=== PATIENT | female | born 1990 ===

== ENCOUNTER 2022-06-13 13:43 | Emergency (ER) | payer OTHER, MEDICAID, SELFPAY ==
[2022-06-13 13:32] VITALS: BP 131/76; PULSE 67; RESP 15; TEMP 36.1; O2SAT 96; BMI 27.1
--- NOTE | 2022-06-13 14:02 | DI.CT.S_ITS ---
PROCEDURE: CT HEAD/BRAIN WO CON INDICATIONS: altered TECHNIQUE: Noncontrast 4.5 mm thick angled axial sections acquired from the foramen magnum to the vertex, with coronal and sagittal reformats. For radiation dose reduction, the following was used: automated exposure control, adjustment of mA and/or kV according to patient size. COMPARISON: None FINDINGS: Image quality: Excellent. CSF spaces: Basal cisterns are patent. No extra-axial fluid collections. Ventricles are normal in size and shape. Brain: No midline shift. There is a focal left temporal hemorrhage, with a parenchymal hematoma measuring 2.4 x 1.5 x 1.9 cm . Hilliard-white matter interface is normal. Skull and face: Calvarium and visualized facial bones are intact, without suspicious lesions. Sinuses: Visualized sinuses and mastoids are clear. IMPRESSION: Focal left temporal parenchymal hematoma measuring 2.4 x 1.5 x 1.9 cm Comment: Findings were discussed with Dr. Nash on 06/13/2022 at 1456 hours It is noted that the patient also has a CT angiogram of the head. Please refer to a separate report. Dictated by: Augusto Cheung M.D. on 06/13/2022 at 14:49 Approved by: Augusto Cheung M.D. on 06/13/2022 at 14:53
[2022-06-13 14:23] LABS: Add Manual Diff / Slide Review NO; Basophils Absolute Auto 0 /uL (0-100); Basophils Percent Auto 0.4 % (0-2); Eosinophils Absolute Auto 100 /uL (0-450); Eosinophils Percent Auto 1.3 % (2-4); Hematocrit 38.8 % (36-46); Hemoglobin 13.1 g/dL (12.0-16.0); Lymphocytes Absolute Auto 1200 /uL (1100-4500); Lymphocytes Percent Auto 19.3 % (25-40); Mean Corpuscular HGB Conc 33.7 % (30-36); Mean Corpuscular Hemoglobin 28.3 PG (26-34); Mean Corpuscular Volume 84.2 fL (80-100); Monocytes Absolute Auto 500 /uL (0-900); Neutrophils Absolute Auto 4300 /uL (1500-7000); Platelet Count 199 X10^3/uL (150-400); Red Blood Cell Count 4.61 X10^6/uL (4.0-5.2); White Blood Cell Count 6.1 X10^3/uL (4.5-11.0)
[2022-06-13 14:32] LABS: Lactate (Lactic Acid) 0.7 mmol/L (0.7-2.1)
--- NOTE | 2022-06-13 14:32 | DI.CT.S_ITS ---
PROCEDURE: CT ANGIO HEAD INDICATIONS: 31-year-old female with left temporal hemorrhage TECHNIQUE: Precontrast 4.5 mm thick angled axial sections acquired from the foramen magnum to the vertex. After the administration of intravenous contrast, 1 mm thick sections acquired through the Kimberly of [place]. Postcontrast 4.5 mm thick sections then re-acquired from the foramen magnum to the vertex. 10 mm thick ivhzqaj-mubrggblz-[id number] (MIP) reformats were acquired of the central intracranial vasculature. For radiation dose reduction, the following was used: automated exposure control, adjustment of mA and/or kV according to patient size. COMPARISON: [facility], CT, CT HEAD/BRAIN WO CON, 06/13/2022, 14:28. FINDINGS: Image quality: Excellent. In the left anterior temporal lobe, there is a tangle of vessels measuring approximately 1.7 cm extending into the sylvian fissure with dilated arterial supply arising from branches of the middle cerebral artery. Dilated venous drainage is via the basal vein of Ector to the deep venous vasculature. No obvious aneurysm present. No evidence of large vessel occlusion. Both anterior cerebral vessels unremarkable. Right anterior circulation unremarkable. Posterior circulation: Visualized portions of the vertebral arteries demonstrate normal caliber, and join to form a normal appearing basilar artery. Flow within the posterior cerebral arteries is normal and symmetric. No aneurysms are seen. Otherwise, left temporal hematoma remains unchanged. No evidence of subarachnoid bleed. No mass effect or midline shift. IMPRESSION: Left temporal arterial venous malformation. Small nidus in the left temporal pole drains to the deep venous system Stable left temporal hematoma Approved by: Robbie Gutierrez M.D. on 06/13/2022 at 14:02
--- NOTE | 2022-06-13 14:32 | ED.NEUROSD ---
HPI - Neuro Symptoms/Deficit General Chief Complaint: Neuro Symptoms/Deficit Stated Complaint: Confusion Time Seen by Provider: 06/13/22 13:53 Source: EMS Mode of arrival: EMS History of Present Illness HPI Narrative: 31-year-old female nonsmoker with noncontributory medical history that is known presents by EMS for evaluation of confusion. She is a very poor historian and does not understand why she is here and denies any trauma or injury. It is reported that she walked to her neighbor's house who noted her to be acting abnormally and they called EMS. she is certainly slurring her words a bit but does admit to drinking upwards of 2 bottles of champagne per day. She denies any seizures or injuries. She takes no blood thinners. She denies any headache or blurred vision. Related Data Allergies Allergy/AdvReac Type Severity Reaction Status Date / Time No Known Drug Allergies Allergy Verified 06/13/22 14:00 Review of Systems Review of Systems Narrative: GENERAL: Denies chills, fatigue, malaise, fever, sweats. HEENT: Denies sinus pain, ear pain, sore throat, difficulty swallowing, dizziness. RESPIRATORY: Denies dyspnea, cough, wheezing, hemoptysis, sputum. CARDIOVASCULAR: Denies chest pain, palpitations, orthopnea, edema, GASTROINTESTINAL: Denies nausea, vomiting, abdominal pain, diarrhea, constipation, melena. : Denies dysuria, frequency, incontinence, hematuria, urinary retention. MUSCULOSKELETAL: denies weakness, joint pain, or bony pain SKIN: Denies rash, skin lesions, or other NEUROLOGIC: See HPI PSYCHIATRIC: No concerning psychosocial issues. 12 point review of systems is negative except for those stated above Patient History Social History Smoking Status: Unknown if ever smoked Smoking Status: Unknown if ever smoked Exam Narrative Exam Narrative: GENERAL: [31] year old patient appears stated age. Well-developed patient, in mild distress. GCS 14 (confused) HEAD: Atraumatic. Normocephalic. EYES: Pupils equal round and reactive. Extraocular motions intact. No scleral icterus. No injection or drainage. ENT: Nose without bleeding, purulent drainage. Throat without erythema, tonsillar hypertrophy or exudate. Airway patent. NECK: Trachea midline. Non tender CARDIOVASCULAR: Regular rate and rhythm without murmurs, gallops, or rubs. RESPIRATORY: Clear to auscultation. Breath sounds equal bilaterally. No wheezes, rales, or rhonchi. GASTROINTESTINAL: Abdomen soft, non-tender, nondistended. EXTREMITIES: No edema or joint tenderness. BACK: Nontender without deformity or crepitance. No flank tenderness. NEURO: AOx3. SKIN: No rash or erythema of visible areas Initial Vital Signs Initial Vital Signs: Vital Signs Temperature 97.0 F L 06/13/22 13:32 Pulse Rate 67 06/13/22 13:32 Respiratory Rate 15 06/13/22 13:32 Blood Pressure 131/76 06/13/22 13:32 Pulse Oximetry 96 06/13/22 13:32 Oxygen Delivery Method Room Air 06/13/22 13:32 Course Orders Ordered: ED Orders 06/13/22 14:01 Urine Drug Screen, Rapid Stat 06/13/22 14:02 CT head/brain wo con Stat 06/13/22 14:10 Acetaminophen Stat Complete Blood Count AUTO DIFF Stat Comprehensive Metabolic Panel Stat Ethanol (ETOH) Stat Lactate (Lactic Acid) Stat Lipase Stat Magnesium Stat Osmolality, Serum Stat Salicylate Stat 06/13/22 14:32 CT angio head Stat 06/13/22 15:14 COVID19 -Nasal RAPID Stat Nicardipine HCl 25 mg/ Sodium (Chloride) 250 mls @ 50 mls/hr IV TITRATE VEDA; Protocol Consultations Consultation #1: call to radiologist (Dr. Casas) to discuss CT findings noting Focal left temporal parenchymal hematoma measuring 2.4 x 1.9 cm Consultation #2: call to Dr. Pickard ([facility] [place] [facility]), requests BP held below 140. Will consult with Neurosurgery given likelihood of AVM. Consultation #3: Dr. Valdez ([place]urg [facility] [place] happy to accept, again requests blood pressure held to below 140, he does recommend the addition of Keppra 1 g if able to be initiated and 5 minutes or less, requests airlift not be delayed Vital Signs Vital signs: Vital Signs - 8 hr 06/13/22 13:32 06/13/22 14:43 06/13/22 14:43 Temperature 97.0 F L Pulse Rate 67 98 H Respiratory Rate 15 Blood Pressure 131/76 126/84 Pulse Oximetry 96 98 Oxygen Delivery Method Room Air 06/13/22 15:00 06/13/22 15:00 Temperature Pulse Rate 85 Respiratory Rate 26 H Blood Pressure 137/82 Pulse Oximetry 98 Oxygen Delivery Method MDM - Neuro Symptoms/Deficit Lab Data 06/13/22 14:10 06/13/22 14:10 Labs: Lab Results 06/13/22 06/13/22 06/13/22 Range/Units 14:10 14:10 14:10 WBC 6.1 (4.5-11.0) X10^3/uL RBC 4.61 (4.0-5.2) X10^6/uL Hgb 13.1 (12.0-16.0) g/dL Hct 38.8 (36-46) % MCV 84.2 (80-100) fL MCH 28.3 (26-34) PG MCHC 33.7 (30-36) % RDW 13.0 (11.6-14.8) % Plt Count 199 (150-400) X10^3/uL Neut % (Auto) 71.0 (50-75) % Lymph % (Auto) 19.3 L (25-40) % Zavala % (Auto) 8.0 (3-14) % Eos % (Auto) 1.3 L (2-4) % Baso % (Auto) 0.4 (0-2) % Neut # (Auto) 4300 (4652-6521) /uL Lymph # (Auto) 1200 (8140-3759) /uL Zavala # (Auto) 500 (0-900) /uL Eos # (Auto) 100 (0-450) /uL Baso # (Auto) 0 (0-100) /uL Sodium 136 L (137-145) mmol/L Potassium 3.7 (3.4-5.1) mmol/L Chloride 104 (98-107) mmol/L Carbon Dioxide 24 (22-32) mmol/L BUN 9 (7-17) mg/dL Creatinine 0.53 (0.52-1.04) mg/dL Estimated GFR > 60 (>60) mL/min BUN/Creatinine Ratio 17.0 (6-22) Glucose 122 H (70-100) mg/dL Lactate 0.7 (0.7-2.1) mmol/L Calcium 8.2 L (8.4-10.2) mg/dL Magnesium 2.0 (1.6-2.3) mg/dL Total Bilirubin 0.4 (0.2-1.3) mg/dL AST 22 (14-36) IU/L ALT 23 (<35) IU/L Alkaline Phosphatase 50 (38-126) U/L Total Protein 7.3 (6.3-8.2) g/dL Albumin 4.3 (3.5-5.0) g/dL Globulin 3.0 (1.7-4.1) g/dL Albumin/Globulin Ratio 1.4 (1.0-2.8) Lipase 74 (23-300) U/L Salicylates < 1.0 (<20) mg/dL Acetaminophen < 10 (10-30) ug/mL Ethyl Alcohol < 10 ( - 10) mg/dL MDM Narrative Medical decision making narrative: 31-year-old female with history of alcohol abuse presents by EMS for evaluation of confusion. There is no report or physical evidence of trauma Critical Care Time Critical Care Time Critical Care Time: Yes Total Critical Care Time: 30 Attestation: The high probability of a clinically significant, sudden or life threatening deterioration of the [NV] system(s) required my full and direct attention, intervention and personal management. The aggregate critical care time was [30] minutes. This time is in addition to time spent performing reported procedures but includes the following: [x] Data Review and interpretation [x] Patient assessment and monitoring of vital signs [x] Documentation [x] Medication orders and management Discharge Plan Departure Patient Disposition: [facility] Clinical Impression: Intraparenchymal hematoma of brain, AVM (arteriovenous malformation)
[2022-06-13 14:34] LABS: Acetaminophen < 10 ug/mL (10-30); Alanine Aminotransferase 23 IU/L (<35); Albumin 4.3 g/dL (3.5-5.0); Albumin Globulin Ratio 1.4 (1.0-2.8); Alkaline Phosphatase 50 U/L (38-126); Aspartate Aminotransferase 22 IU/L (14-36); Bilirubin Total 0.4 mg/dL (0.2-1.3); Blood Urea Nitrogen 9 mg/dL (7-17); Calcium 8.2 mg/dL (8.4-10.2); Carbon Dioxide 24 mmol/L (22-32); Chloride 104 mmol/L (98-107); Estimated Glomerular Filt Rate > 60 mL/min (>60); Ethanol (ETOH) < 10 mg/dL; Glucose 122 mg/dL (70-100); HEMOLYSIS < 15 (0-50); Lipase 74 U/L (23-300); Potassium 3.7 mmol/L (3.4-5.1); Salicylate < 1.0 mg/dL (<20); Sodium 136 mmol/L (137-145); Total Protein 7.3 g/dL (6.3-8.2)
[2022-06-13 14:43] VITALS: BP 126/84; PULSE 98; O2SAT 98
[2022-06-13 15:00] VITALS: BP 137/82; PULSE 85; RESP 26; O2SAT 98
--- NOTE | 2022-06-13 15:07 | PC.NURSE ---
I spoke with sister jamie on the phone and gave her update about status of patient while at bedside with patient per her consent.
[2022-06-13] MEDS: NICARDIPINE 25 MG in SODIUM CHLORIDE 0.9% 240 ML 50 MG IV (15:19)
[2022-06-13 15:20] VITALS: BP 113/87; PULSE 67; RESP 19; O2SAT 100
--- NOTE | 2022-06-13 15:24 | PC.NURSE ---
I spoke with the mom on the phone at this time and updated her about pending transfer and status of patient per the patient's request. Dr. Nash aware that I have spoken to the mother and the patient's sister. I told him that mother requests a call from the physician when it is possible.
[2022-06-13 15:25] VITALS: BP 107/60; PULSE 82; RESP 22; O2SAT 98
[2022-06-13 15:29] LABS: COVID19 -Nasal RAPID Negative (Negative)
--- NOTE | 2022-06-13 15:32 | PC.NURSE ---
Per Dr. Nash, titrate Nicardipine drip to maintin BP less than 140 systolic. Patient's BP now 107 systolic. I stopped the nicardipine drip and sent it with [facility] team in case they need it in transport. Report given to airlift team.
[2022-06-13] MEDS: levETIRAcetam 1,000 MG in SODIUM CHLORIDE 0.9% 100 ML 440 MG IV (15:43)
--- NOTE | 2022-06-13 15:44 | PC.NURSE ---
Unable to scan Nicardipine drip or Keppra drip with scanner in room, did not switch to a different scanner because I did not want to delaty patient care and these medications were time sensitive. I mixed Keppra and gave it to [facility]. They started the Keppra drip and will complete it enroute. patient leaving ER on the way to helicopter at this time.
[2022-06-16 14:11] LABS: Osmolality, Serum 284 mOsmol/kg (275-295)
== END 2022-06-13 15:46 | disposition short-term general hospital (02) ==
PROVIDERS: Emergency Provider Emergency Medicine
DX: I61.8 Other nontraumatic intracerebral hemorrhage (principal); Q27.30 Arteriovenous malformation, site unspecified; R47.81 Slurred speech; Z20.822 Contact with and (suspected) exposure to COVID-19
CPT/HCPCS: 36415; 70450; 70496; 80053; 80320; 80329; 83605; 83690; 83735; 83930; 85025; 87635; 96374; 96375; 99285; 99291; C9803; G0480; J1953; Q9967